=== PATIENT | male | born 1965 | race Caucasian/White ===

== ENCOUNTER 2017-05-12 12:39 | Day surgery (SDC) | payer OTHER ==
[~2017-05-12] VITALS: Ht 171.4 cm; Wt 85.0 kg
[~2017-05-12 12:39] MED LIST: OMEP20TA62 PO; [UNRECOGNIZED DRUG - REMARK]
[2017-05-12 13:17] VITALS: BP 134/84
[2017-05-12] MEDS ORDERED: TYLENOL PM PO (13:17)
[2017-05-12] MEDS ORDERED: LACTATED RINGERS 1,000 ML IV SCH (13:21)
[2017-05-12] MEDS ORDERED: LIDOCAINE 1%, 2ML SQ PRN (13:30)
[2017-05-12] MEDS ORDERED: PROPOFOL 10 MG/ML, 20ML ONE (14:28)
[2017-05-12] MEDS ORDERED: LIDOCAINE 2%, 10ML ONE (14:28)
[2017-05-12] MEDS ORDERED: HYDROmorphone 1 MG/ML, 1ML IV PRN (15:30)
[2017-05-12] MEDS ORDERED: LABETALOL 5MG/ML, 20ML IV PRN (15:30)
[2017-05-12] MEDS ORDERED: ACETAMINOPHEN 325 MG TABLET PO PRN (15:30)
[2017-05-12] MEDS ORDERED: hydrALAzine 20 MG/ML, 1ML IV PRN (15:30)
[2017-05-12] MEDS ORDERED: FENTANYL PF 100 MCG/2ML IV PRN (15:30)
[2017-05-12] MEDS ORDERED: ONDANSETRON 2MG/ML, 2ML IVPush PRN (15:30)
[2017-05-12] MEDS ORDERED: OXYcodone 5 MG/5 ML ORAL.SOL UDC PO PRN (15:30)
[2017-05-12] MEDS ORDERED: METOCLOPRAMIDE 5 MG/ML, 2ML IV PRN (15:30)
== END 2017-05-12 16:25 ==
LOC: OUT 12:39
PROVIDERS: ATTEND Internal Medicine
DX: K86.89 Other specified diseases of pancreas (principal); K31.89 Other diseases of stomach and duodenum; Z98.890 Other specified postprocedural states
CPT/HCPCS: 43239; 43259; 88305; J2704; J3490; J7120